=== PATIENT | male | born 1970 | race Caucasian/White ===

== ENCOUNTER 2017-10-09 11:45 | Emergency (ER) | payer BC ==
[~2017-10-09 11:45] MED LIST: Aspirin 81 MG Tab.Chew PO ONE; Nitroglycerin 0.4 MG Tab.SL SL PRN
[2017-10-09] MEDS: Nitroglycerin 0.4 MG Tab.SL SL PRN ×3 (11:50→12:00)
[2017-10-09] MEDS ORDERED: Sodium Chloride 0.9% 10 ML Syringe FLUSH PRN (12:15)
[2017-10-09] MEDS ORDERED: Morphine 2 MG/ML Syringe IVPUSH ONE (12:16)
[2017-10-09] MEDS ORDERED: Aspirin 81 MG Tab.Chew PO ONE (12:16)
--- NOTE | 2017-10-09 12:17 | EDM.PDOC ---
ED HPI GENERAL MEDICAL PROBLEM - General Chief Complaint: Chest Pain Stated Complaint: CP Time Seen by Provider: 10/09/17 11:55 Source of Information: Reports: Patient History Limitations: Reports: No Limitations - History of Present Illness INITIAL COMMENTS - FREE TEXT/NARRATIVE: Patient is a 46 year old male who presents to the ER with complaints of chest pain. He reports that he was out hunting and had sudden onset anterior generalized chest pain around 0930. He describes the pain as an ache and rates it a 4/10 upon ER arrival. He also reports he had some shortness of breath and was diaphoretic at onset of pain. He reports he also had an "achy" pain in his left arm. Family reports he was not acting quite like himself this morning, saying he was not as active and involved as normal. He reports he would walk approximately 50 yards and have to stop because he was so short of breath. Denies dizziness, lightheadedness, nausea, vomiting, diarrhea, indigestion, and headache. No other associated symptoms. Denies any history of cardiac issues. Denies any hypertension. Does report both his mother and father have history of hypertension. Onset: Today Onset Date: 10/09/17 Onset Time: 09:30 Duration: Constant Location: Reports: Chest, Upper Extremity, Left Quality: Reports: Ache Severity: Moderate Associated Symptoms: Reports: Chest Pain, Diaphoresis, Shortness of Breath. Denies: Confusion, Cough, cough w sputum, Fever/Chills, Headaches, Loss of Appetite, Malaise, Nausea/Vomiting, Rash, Seizure, Syncope, Weakness Middle Chest Pain Score (Numeric/FACES): 5 - Related Data Allergies Allergy/AdvReac Type Severity Reaction Status Date / Time No Known Allergies Allergy Verified 10/09/17 12:09 Home Meds: Home Meds . [No Known Home Meds] 10/09/17 [History] Past Medical History Hematologic History: Reports: Other (See Below) (blood clot) ED ROS GENERAL - Review of Systems Review Of Systems: See Below Constitutional: Reports: Weakness, Fatigue, Diaphoresis. Denies: Fever, Chills , Malaise, Night Sweats, Decreased Appetite, Weight Loss, Weight Gain HEENT: Reports: No Symptoms Respiratory: Reports: Shortness of Breath Cardiovascular: Reports: Chest Pain, Dyspnea on Exertion. Denies: Blood Pressure Problem, Claudication, Edema, Lightheadedness, Palpitations, Syncope Endocrine: Reports: Fatigue GI/Abdominal: Reports: No Symptoms. Denies: Abdominal Pain, Black Stool, Bloody Stool, Constipation, Diarrhea, Hematemesis, Hematochezia, Melena, Nausea , Vomiting : Reports: No Symptoms. Denies: Discharge, Dysuria, Flank Pain, Frequency Musculoskeletal: Reports: Arm Pain (left arm ache). Denies: Neck Pain, Shoulder Pain, Back Pain, Hand Pain, Leg Pain, Foot Pain, Muscle Pain, Muscle Stiffness Skin: Reports: Diaphoresis Neurological: Denies: Confusion, Headache, Numbness, Pre-Existing Deficit, Syncope, Tingling Psychiatric: Reports: Anxiety Hematologic/Lymphatic: Reports: No Symptoms. Denies: Easy Bleeding, Easy Bruising Immunologic: Reports: No Symptoms ED EXAM, GENERAL - Physical Exam Exam: See Below Exam Limited By: No Limitations General Appearance: Alert, WD/WN, Moderate Distress Eye Exam: Bilateral Eye: EOMI, Normal Fundi, Normal Inspection, PERRL Throat/Mouth: Normal Inspection, Normal Lips, Normal Teeth, Normal Gums, Normal Oropharynx, Normal Voice, No Airway Compromise Head: Atraumatic, Normocephalic Respiratory/Chest: No Respiratory Distress, Lungs Clear, Normal Breath Sounds, No Accessory Muscle Use Cardiovascular: Normal Peripheral Pulses, Regular Rate, Rhythm, No Edema, No Gallop, No JVD, No Murmur, No Rub GI/Abdominal: Normal Bowel Sounds, Soft, Non-Tender, No Organomegaly, No Distention, No Abnormal Bruit, No Mass (Male) Exam: Deferred Rectal (Males) Exam: Deferred Back Exam: Normal Inspection, Full Range of Motion, NT Extremities: Normal Inspection, Normal Range of Motion, Non-Tender, Normal Capillary Refill, No Pedal Edema Neurological: Alert, Oriented, CN II-XII Intact, Normal Cognition, Normal Gait, Normal Reflexes, No Motor/Sensory Deficits Psychiatric: Anxious Skin Exam: Warm, Dry, Intact, Diaphoretic Lymphatic: No Adenopathy EKG INTERPRETATION EKG Date: 10/09/17 Time: 11:55 Rhythm: NSR [place]: Normal P-Wave: Present QRS: Normal ST-T: Normal QT: Normal Comparison: NA - No Prior EKG Course - Vital Signs Last Recorded V/S: Last Vital Signs Temp 97 F 10/09/17 13:41 Pulse 58 L 10/09/17 13:41 Resp 20 10/09/17 12:06 BP 158/105 H 10/09/17 13:41 Pulse Ox 100 10/09/17 12:06 - Orders/Labs/Meds Orders: Active Orders 24 hr Category Date Time Status EKG Documentation Completion [RC] STAT Care 10/09/17 11:45 Active EKG Documentation Completion [RC] STAT Care 10/09/17 12:55 Active Chest 2V [CR] Stat Exams 10/09/17 12:13 Taken Saline Lock Insert [OM.PC] Routine Oth 10/09/17 12:15 Ordered Labs: Laboratory Tests 10/09/17 10/09/17 10/09/17 Range/Units 12:13 12:13 12:13 WBC 11.8 H (5.0-10.0) 10^3/uL RBC 4.71 (4.50-6.00) 10^6/uL Hgb 14.1 (14.0-18.0) g/dL Hct 41.5 (40.0-54.0) % MCV 88.1 (82.0-94.0) fL MCH 29.9 (27.0-32.0) pg MCHC 34.0 (33.0-38.0) g/dL RDW Coeff of Agustin 12.7 (11.0-15.0) % Plt Count 304 (150-400) 10^3/uL Neut % (Auto) 89.0 H (35-85) % Lymph % (Auto) 7.1 L (10-55) % [place] % (Auto) 3.6 (0-16) % Eos % (Auto) 0.1 (0-5) % Baso % (Auto) 0.2 (0-3) % Neut # (Auto) 10.51 H (1.80-7.00) 10^3/uL Lymph # (Auto) 0.84 L (1.00-4.80) 10^3/uL [place] # (Auto) 0.43 (0.00-0.80) 10^3/uL Eos # (Auto) 0.01 (0.00-0.45) 10^3/uL Baso # (Auto) 0.02 10^3/uL PT 10.2 (9.7-12.3) SEC INR 0.95 (0.92-1.18) APTT 21.9 L (24.5-30.9) SEC D-Dimer, Quantitative 0.53 H (0.00-0.50) Sodium 139 (136-145) mEq/L Potassium 4.3 (3.5-5.0) mEq/L Chloride 102 (98-106) mEq/L Carbon Dioxide 25 (21-32) mmol/L BUN 23 H (7-18) mg/dL Creatinine 1.3 (0.7-1.3) mg/dL Est Cr Clr Drug Dosing 71.75 mL/min Estimated GFR (MDRD) 59 L (>=60) mL/min Glucose 139 H (75-99) mg/dL Calcium 9.2 (8.4-10.1) mg/dL Total Bilirubin 0.4 (0.0-1.0) mg/dL AST 52 H (15-37) U/L ALT 110 H (12-78) U/L Alkaline Phosphatase 86 (46-116) U/L Lactate Dehydrogenase 193 H (100-190) U/L Creatine Kinase 403 H (35-232) U/L Troponin I 0.040 (0.00-0.06) ng/mL Total Protein 7.4 (6.4-8.2) g/dL Albumin 4.1 (3.4-5.0) g/dL Meds: Medications Discontinued Medications Generic Name Dose Route Start Last Admin Trade Name Freq PRN Reason Stop Dose Admin Aspirin 324 mg 10/09/17 12:16 10/09/17 11:50 Aspirin PO 10/09/17 12:17 324 mg ONETIME ONE Administration Aspirin 324 mg 10/09/17 11:45 10/09/17 12:23 Aspirin PO 10/09/17 11:46 Not Given ONETIME ONE Clopidogrel Bisulfate 600 mg 10/09/17 13:12 10/09/17 13:57 Plavix PO 10/09/17 13:13 Not Given STAT ONE Heparin Sodium (Porcine) 5,000 units 10/09/17 12:59 10/09/17 13:13 Heparin Sodium IVPUSH 10/09/17 13:00 5,000 units .BOLUS ONE Administration Sodium Chloride Confirm 10/09/17 12:35 Normal Saline Administered 10/09/17 12:36 Dose 1,000 mls @ as directed .ROUTE .STK-MED ONE Heparin Sodium/Dextrose 25,000 units in 500 mls @ 20 mls/hr 10/09/17 13:15 13:37 Heparin 25,000 Units In D5w 500 Ml IV 20 mls/hr STAT AMANDA Administration Protocol Sodium Chloride 1,000 mls @ 125 mls/hr 10/09/17 13:30 10/09/17 12:45 Normal Saline IV 125 mls/hr ASDIRECTED AMANDA Administration Metoprolol Tartrate 2.5 mg 10/09/17 12:58 10/09/17 13:09 Lopressor IVPUSH 10/09/17 12:59 2.5 mg ONETIME ONE Administration Morphine Sulfate 2 mg 10/09/17 12:16 10/09/17 12:34 Morphine IVPUSH 10/09/17 12:17 2 mg ONETIME ONE Administration Nitroglycerin 0.4 mg 10/09/17 12:15 10/09/17 12:00 Nitrostat SL 0.4 mg Q5M PRN Administration Chest Pain Nitroglycerin 0.4 mg 10/09/17 11:45 Nitrostat SL Q5M PRN Chest Pain Sodium Chloride 10 ml 10/09/17 12:15 Saline Flush FLUSH ASDIRECTED PRN Keep Vein Open Tenecteplase 50 mg 10/09/17 13:19 10/09/17 13:55 Tnkase IV 10/09/17 13:20 45 mg NOW STA Administration Protocol - Re-Assessments/Exams Free Text/Narrative Re-Assessment/Exam: Discussed case with Dr. Samaniego (Cardiology) at [facility]. Initial EKG was NSR and troponin was negative. He recommended a repeat EKG. Repeat EKG shows ST elevation in anterior and lateral leads. [facility] accepted patient for transfer to [facility]. Call from [facility] with ETA of [facility]. ETA is 1350. Called for lot clearance. Spoke again with Dr. Samaniego (Cardiology) who recommended we start a heparin gtt, and administer 600 mg Plavix and metoprolol. Heparin bolus and gtt were administered and metoprolol was administered. After further discussion with zipper ironer and transit time was further discussed, zipper ironer recommended we administer TNKase as patient would be outside of 90 minute window and to discontinue the Plavix. There was difficulty in getting our EKG sent to the receiving facility, so there was some delay in TNKase administration. Risks and benefits of TNKase and heparin gtt were discussed with patient and family. Consent was received to administer these medications from patient. We were instructed to wait to administer TNKase until zipper ironer was able to review EKG. EKG was eventually sent and 45 mg TNKase was administered prior to leaving facility with life flight without difficulty. Risks and benefits of transfer discussed with patient and family. Risks of transfer include helicopter crash, worsening of condition enroute, and . Benefits of transfer include specialized cardiology care and PCI intervention. Risks of non-transfer include , worsening of condition, and nonspecialized care. Benefits of care include familiar environment and care in current facility. Patient verbalized understanding of risks and benefits and agreed to proceed with transfer. Departure - Departure Time of Disposition: 13:45 Disposition: DC/Tfer to Acute Hospital 02 Reason for Transfer *Q: Primary PCI Indicated Condition: Serious Clinical Impression: Acute coronary syndrome STEMI (ST elevation myocardial infarction) Qualifiers: Involved coronary artery: unspecified coronary artery Qualified Code(s): I21.3 - ST elevation (STEMI) myocardial infarction of unspecified site Referrals: PCP,None [Primary Care Provider] - Forms: ED Department Discharge Additional Instructions: Transfer via [facility] to [facility]. - My Orders Last 24 Hours: My Active Orders 10/09/17 11:45 EKG Documentation Completion [RC] STAT 10/09/17 12:13 Chest 2V [CR] Stat 10/09/17 12:15 Saline Lock Insert [OM.PC] Routine 10/09/17 12:55 EKG Documentation Completion [RC] STAT - Assessment/Plan Last 24 Hours: My Active Orders 10/09/17 11:45 EKG Documentation Completion [RC] STAT 10/09/17 12:13 Chest 2V [CR] Stat 10/09/17 12:15 Saline Lock Insert [OM.PC] Routine 10/09/17 12:55 EKG Documentation Completion [RC] STAT
[2017-10-09] MEDS ORDERED: Sodium Chloride 0.9% 1,000 ML ONE (12:35)
[2017-10-09] MEDS ORDERED: Metoprolol Tartrate 5 MG/5 ML SDV IVPUSH ONE (12:58)
[2017-10-09] MEDS ORDERED: Heparin Sodium 10,000 Units/1 ML MDV IVPUSH ONE (12:59)
[2017-10-09] MEDS ORDERED: Heparin Sodium/D5W 25,000 UNITS/500 ML BAG IV SCH (13:15)
[2017-10-09] MEDS: Clopidogrel 75 MG Tab PO ONE ×2 (13:15→13:57)
[2017-10-09] MEDS ORDERED: Tenecteplase 50 MG Kit IV STA (13:19)
[2017-10-09] MEDS ORDERED: Sodium Chloride 0.9% 1,000 ML IV SCH (13:30)
== END 2017-10-09 14:00 ==
LOC: CC.ED 11:45
DX: I21.3 ST elevation (STEMI) myocardial infarction of unspecified site (principal); I24.9 Acute ischemic heart disease, unspecified
CPT/HCPCS: 36415; 71020; 80053; 82550; 83615; 84484; 85025; 85379; 85610; 85730; 93005; 96361; 96365; 96374; 96375; 99285; A9270; J1644; J2270; J3101; J7030; J3490